=== PATIENT | female | born 1990 | race Caucasian/White ===

== ENCOUNTER → 2016-07-20 | Outpatient (CLI) | payer BC | LOC: MW.CHFP 10:22 → MERGE 10:22 | PROVIDERS: ATTEND Emergency Medicine | DX: R50.9 Fever, unspecified (principal) | CPT/HCPCS: 36415; 85025; 87804 ==

== ENCOUNTER 2017-09-08 00:07 | Inpatient (IN) | payer BC ==
[2017-09-08] MEDS ORDERED: Tranexamic Acid 1,000 MG in Sodium Chloride 0.9% 100 ML IV PRN (00:12)
[2017-09-08] MEDS ORDERED: Carboprost Tromethamine 250 MCG/1 ML Amp IM PRN (00:12)
[2017-09-08] MEDS ORDERED: Sodium Chloride 0.9% 10 ML Syringe FLUSH PRN (00:12)
[2017-09-08] MEDS ORDERED: Terbutaline 1 MG/ML SDV SUBCUT PRN (00:12)
[2017-09-08] MEDS ORDERED: Misoprostol 200 MCG Tab PO PRN (00:12)
[2017-09-08] MEDS ORDERED: Sodium Chloride 0.9% 2.5 ML Syringe FLUSH PRN (00:12)
[2017-09-08] MEDS ORDERED: Water For Irrigation,Sterile 1,000 ML Container IRR PRN (00:12)
[2017-09-08] MEDS ORDERED: Lidocaine 1% 50 ML MDV INJECT PRN (00:12)
[2017-09-08] MEDS ORDERED: Nalbuphine 10 MG/1 ML Vial IVPUSH PRN (00:12)
[2017-09-08] MEDS ORDERED: Methylergonovine 0.2 MG/1 ML Amp IM PRN (00:12)
[2017-09-08] MEDS ORDERED: Oxytocin/0.9 % Sodium Chloride 30 UNIT/500 ML BAG IV SCH ×2 (00:15)
[2017-09-08] MEDS ORDERED: Ampicillin 2 GM in Sodium Chloride 0.9% 100 ML IV ONE (00:45)
[2017-09-08] MEDS: Lactated Ringers 1,000 ML IV SCH ×4 (00:50→20:18)
[2017-09-08] MEDS: Ampicillin 1 GM in Sodium Chloride 0.9% 50 ML IV SCH ×5 (05:02→21:00)
--- NOTE | 2017-09-08 09:53 | PCM.LDHP ---
L&D History of Present Illness - General Date of Service: 09/08/17 Admit Problem/Dx: Patient Status Order with Admit Dx/Problem 09/08/17 00:13 Patient Status [ADT] Routine Admission Diagnosis/Problem Admission Diagnosis/Problem Source of Information: Patient History Limitations: Reports: No Limitations - History of Present Illness Improves with: Reports: None Worsens with: Reports: None Associated Symptoms: Reports: N - Related Data Allergies/Adverse Reactions: Allergies Allergy/AdvReac Type Severity Reaction Status Date / Time Latex, Natural Rubber Allergy Rash Verified 07/23/14 17:41 Home Medications: Home Meds [id number]/Iron Fumarate/FA/DSS [ 19 Tablet] 1 each PO 09/08/17 [History] Past Medical History - Past Health History Medical/Surgical History: Denies Medical/Surgical History Social & Family History - Tobacco Use Smoking Status *Q: Former Smoker Years of Tobacco use: 7 Used Tobacco, but Quit: No Month/Year Tobacco Last Used: 06/2013 Tobacco Use Comment: Has been 12 months since she last smoked Second Hand Smoke Exposure: No - Caffeine Use Caffeine Use: Reports: Coffee, Soda, Tea - Alcohol Use Days Per Week of Alcohol Use: 0 - Recreational Drug Use Recreational Drug Use: No H&P Review of Systems - Review of Systems: Review Of Systems: See Below General: Reports: No Symptoms HEENT: Reports: No Symptoms Pulmonary: Reports: No Symptoms Cardiovascular: Reports: No Symptoms Gastrointestinal: Reports: No Symptoms Genitourinary: Reports: No Symptoms Musculoskeletal: Reports: No Symptoms Skin: Reports: No Symptoms Psychiatric: Reports: No Symptoms Neurological: Reports: No Symptoms Hematologic/Lymphatic: Reports: No Symptoms Immunologic: Reports: No Symptoms L&D Exam - Exam Exam: See Below - Vital Signs Weight: 80.286 kg - OB Specific Fundal Height In cm: 36 Contraction Intensity: Mild to Moderate Movement: Active Heart Tones: Present Presentation: Vertex - Wilkins Score Wilkins Score Cervix Position: Midposition Wilkins Score Consistency: Medium Wilkins Score Effacement: 31-50% Wilkins Score Dilation: 1-2 cm Wilkins Score 's Station: -3 Wilkins Score Total: 4 - Exam General: Alert, Oriented HEENT: PERRLA, Conjunctiva Clear, EACs Clear, EOMI, Hearing Intact, Mucosa Moist & [place], Nares Patent, Normal Nasal Septum, Posterior Pharynx Clear, TMs Clear Neck: Supple, Trachea Midline Lungs: Clear to Auscultation, Normal Respiratory Effort Cardiovascular: Regular Rate, Regular Rhythm GI/Abdominal Exam: Normal Bowel Sounds, Soft, Non-Tender, No Organomegaly, No Distention, No Abnormal Bruit, No Mass, Pelvis Stable Rectal Exam: Normal Exam, Normal Rectal Tone Genitourinary: Normal external exam, Normal bimanual exam, Normal speculum exam Back Exam: Normal Inspection, Full Range of Motion Extremities: Normal Inspection, Normal Range of Motion, Non-Tender, No Pedal Edema, Normal Capillary Refill Skin: Warm, Dry, Intact Neurological: Cranial Nerves Intact, Reflexes Equal Bilateral Psychiatric: Alert, Normal Affect, Normal Mood - Patient Data Lab Results Last 24 hrs: Laboratory Results - last 24 hr 09/08/17 09/08/17 Range/Units 00:42 00:42 WBC 9.43 (4.0-11.0) K/uL RBC 3.86 L (4.30-5.90) M/uL Hgb 10.8 L (12.0-16.0) g/dL Hct 32.6 L (36.0-46.0) % MCV 84.5 (80.0-98.0) fL MCH 28.0 (27.0-32.0) pg MCHC 33.1 (31.0-37.0) g/dL RDW Std Deviation 38.8 (28.0-62.0) fl RDW Coeff of Neela 13 (11.0-15.0) % Plt Count 180 (150-400) K/uL MPV 10.60 (7.40-12.00) fL Blood Type A POSITIVE Antibody Screen NEGATIVE Result Diagrams: 09/08/17 00:42 Problem List Initiated/Reviewed/Updated: Yes Orders Last 24hrs: Active Orders 24 hr Category Date Time Status Patient Status [ADT] Routine ADT 09/08/17 00:13 Active Communication Order [RC] ASDIRECTED Care 09/08/17 00:13 Active May Shower [RC] ASDIRECTED Care 09/08/17 00:13 Active Notify Provider [RC] PRN Care 09/08/17 00:13 Active Oxygen Therapy [RC] ASDIRECTED Care 09/08/17 00:13 Active Up ad Cass [RC] ASDIRECTED Care 09/08/17 00:13 Active Vital Signs [RC] PER UNIT ROUTINE Care 09/08/17 00:13 Active Clear Liquid Diet [DIET] Diet 09/08/17 Breakfast Active Ampicillin 1 gm Med 09/08/17 05:00 Active Sodium Chloride 0.9% [Normal Saline] 50 ml IV Q4H Carboprost Tromethamine [Hemabate DS] Med 09/08/17 00:12 Active 250 mcg IM ASDIRECTED PRN Lactated Ringers [Ringers, Lactated] 1,000 ml Med 09/08/17 00:15 Active IV ASDIRECTED Lidocaine 1% [Xylocaine 1%] Med 09/08/17 00:12 Active 50 ml INJECT .ONCE PRN Methylergonovine [Methergine] Med 09/08/17 00:12 Active 0.2 mg IM ASDIRECTED PRN Misoprostol [Cytotec] Med 09/08/17 00:12 Active 200 mcg PO .ONCE PRN Nalbuphine [Nubain] Med 09/08/17 00:12 Active 10 mg IVPUSH Q1H PRN Oxytocin/0.9 % Sodium Chloride [Oxytocin 30 Unit/500 ML Med 09/08/17 00:15 Active -NS] 30 unit in 500 ml IV TITRATE Oxytocin/0.9 % Sodium Chloride [Oxytocin 30 Unit/500 ML Med 09/08/17 00:15 Active -NS] 30 unit in 500 ml IV TITRATE Sodium Chloride 0.9% [Saline Flush] Med 09/08/17 00:12 Active 10 ml FLUSH ASDIRECTED PRN Sodium Chloride 0.9% [Saline Flush] Med 09/08/17 00:12 Active 2.5 ml FLUSH ASDIRECTED PRN Terbutaline [Brethine] Med 09/08/17 00:12 Active 0.25 mg SUBCUT ASDIRECTED PRN Tranexamic Acid [Cyklokapron] 1,000 mg Med 09/08/17 00:12 Active Sodium Chloride 0.9% [Normal Saline] 100 ml IV ONETIME Water For Irrigation,Sterile [Sterile Water for Med 09/08/17 00:12 Active Irrigation] 1,000 ml IRR ASDIRECTED PRN Scalp Electrode [WOMSER] Per Unit Routine Oth 09/08/17 00:13 Ordered Medication Administration Instruction [OM.PC] Q3H Oth 09/08/17 00:15 Ordered Peripheral IV Insertion Adult [OM.PC] Routine Oth 09/08/17 00:13 Ordered Resuscitation Status Routine Resus Stat 09/08/17 00:12 Ordered Medication Orders Carboprost Tromethamine (Hemabate Ds) 250 mcg IM ASDIRECTED PRN PRN Reason: Post Hemorrhage Ampicillin Sodium 1 gm/ Sodium (Chloride) 50 mls @ 100 mls/hr IV Q4H EBER Last Admin: 09/08/17 05:02 Dose: 100 mls/hr Lactated Ringer's (Ringers, Lactated) 1,000 mls @ 150 mls/hr IV ASDIRECTED EBER Last Admin: 09/08/17 09:00 Dose: 150 mls/hr Infusion: 09/08/17 07:31 Dose: 150 mls/hr Admin: 09/08/17 00:50 Dose: 150 mls/hr Oxytocin/Sodium Chloride (Oxytocin 30 Unit/500 Ml-Ns) 30 unit in 500 mls @ 999 mls/hr IV TITRATE EBER Oxytocin/Sodium Chloride (Oxytocin 30 Unit/500 Ml-Ns) 30 unit in 500 mls @ 2 mls/hr IV TITRATE EBER; Protocol Last Titration: 09/08/17 07:40 Dose: 16 munits/min, 16 mls/hr Titration: 09/08/17 05:55 Dose: 14 munits/min, 14 mls/hr Titration: 09/08/17 05:05 Dose: 12 munits/min, 12 mls/hr Titration: 09/08/17 04:05 Dose: 10 munits/min, 10 mls/hr Titration: 09/08/17 03:14 Dose: 8 munits/min, 8 mls/hr Titration: 09/08/17 02:35 Dose: 6 munits/min, 6 mls/hr Titration: 09/08/17 02:02 Dose: 4 munits/min, 4 mls/hr Admin: 09/08/17 01:28 Dose: 2 munits/min, 2 mls/hr Tranexamic Acid 1,000 mg/ (Sodium Chloride) 110 mls @ 660 mls/hr IV ONETIME PRN PRN Reason: Bleeding Lidocaine HCl (Xylocaine 1%) 50 ml INJECT .ONCE PRN PRN Reason: Laceration repair Methylergonovine Maleate (Methergine) 0.2 mg IM ASDIRECTED PRN PRN Reason: Post Hemorrhage Misoprostol (Cytotec) 200 mcg PO .ONCE PRN PRN Reason: Post Hemorrhage Nalbuphine HCl (Nubain) 10 mg IVPUSH Q1H PRN PRN Reason: Pain (severe 7-10) Sodium Chloride (Saline Flush) 10 ml FLUSH ASDIRECTED PRN PRN Reason: Keep Vein Open Sodium Chloride (Saline Flush) 2.5 ml FLUSH ASDIRECTED PRN PRN Reason: Keep Vein Open Sterile Water (Sterile Water For Irrigation) 1,000 ml IRR ASDIRECTED PRN PRN Reason: delivery Terbutaline Sulfate (Brethine) 0.25 mg SUBCUT ASDIRECTED PRN PRN Reason: Tacysystole Assessment/Plan Comment:: Pt admited for elective induction.
[2017-09-08] MEDS ORDERED: Bupivacaine 0.25% 10 ML SDV ONE ×2 (19:00→20:54)
[2017-09-08] MEDS ORDERED: fentaNYL 100 MCG/2 ML SDV ONE (19:00)
--- NOTE | 2017-09-08 19:09 | PCM.PREANE ---
Preanesthetic Assessment - Anesthesia/Transfusion/Family Hx Anesthesia History: No Prior Anesthesia Type of Anesthesia Reaction: Other (see below) Family History of Anesthesia Reaction: No - Review of Systems General: No Symptoms Pulmonary: No Symptoms Cardiovascular: No Symptoms Gastrointestinal: No Symptoms Neurological: No Symptoms Other: Reports: None - Physical Assessment NPO Status Date: 09/08/17 NPO Status Time: 17:00 Pulse: 70 O2 Sat by Pulse Oximetry: 100 Respiratory Rate: 20 Blood Pressure: 127/61 Height: 1.57 m Weight: 80.286 kg ASA Class: 2 Airway Class: Mallampati = 1 Dentition: Reports: Normal Dentition ROM/Head Extension: Full Lungs: Clear to Auscultation - Lab Values: Laboratory Last Values WBC 9.43 K/uL (4.0-11.0) 09/08/17 00:42 RBC 3.86 M/uL (4.30-5.90) L 09/08/17 00:42 Hgb 10.8 g/dL (12.0-16.0) L 09/08/17 00:42 Hct 32.6 % (36.0-46.0) L 09/08/17 00:42 MCV 84.5 fL (80.0-98.0) 09/08/17 00:42 MCH 28.0 pg (27.0-32.0) 09/08/17 00:42 MCHC 33.1 g/dL (31.0-37.0) 09/08/17 00:42 RDW Std Deviation 38.8 fl (28.0-62.0) 09/08/17 00:42 RDW Coeff of Neela 13 % (11.0-15.0) 09/08/17 00:42 Plt Count 180 K/uL (150-400) 09/08/17 00:42 MPV 10.60 fL (7.40-12.00) 09/08/17 00:42 Blood Type A POSITIVE 09/08/17 00:42 Antibody Screen NEGATIVE 09/08/17 00:42 - Allergies Allergies/Adverse Reactions: Allergies Allergy/AdvReac Type Severity Reaction Status Date / Time Latex, Natural Rubber Allergy Rash Verified 07/23/14 17:41 - Anesthesia Plan Pre-Op Medication Ordered: None - Acknowledgements Anesthesia Type Planned: Epidural Pt an Appropriate Candidate for the Planned Anesthesia: Yes Alternatives and Risks of Anesthesia Discussed w Pt/Guardian: Yes Pt/Guardian Understands and Agrees with Anesthesia Plan: Yes Additional Comments: Chart reviewed, discussed, ? answered, permit signed, understands risks and benefits. Accepts and wishes to procede. PreAnesthesia Questionnaire - Past Health History Medical/Surgical History: Denies Medical/Surgical History - SUBSTANCE USE Smoking Status *Q: Former Smoker Tobacco Use Within Last Twelve Months: No Second Hand Smoke Exposure: No Days Per Week of Alcohol Use: 0 Recreational Drug Use History: No - HOME MEDS Home Medications: Home Meds [id number]/Iron Fumarate/FA/DSS [ 19 Tablet] 1 each PO 09/08/17 [History] - CURRENT (IN HOUSE) MEDS Current Meds: Current Medications Carboprost Tromethamine (Hemabate Ds) 250 mcg IM ASDIRECTED PRN PRN Reason: Post Hemorrhage Ampicillin Sodium 1 gm/ Sodium (Chloride) 50 mls @ 100 mls/hr IV Q4H EBER Last Admin: 09/08/17 17:19 Dose: 100 mls/hr Lactated Ringer's (Ringers, Lactated) 1,000 mls @ 150 mls/hr IV ASDIRECTED EBER Last Admin: 09/08/17 09:00 Dose: 150 mls/hr Oxytocin/Sodium Chloride (Oxytocin 30 Unit/500 Ml-Ns) 30 unit in 500 mls @ 999 mls/hr IV TITRATE EBER Oxytocin/Sodium Chloride (Oxytocin 30 Unit/500 Ml-Ns) 30 unit in 500 mls @ 2 mls/hr IV TITRATE EBER; Protocol Last Titration: 09/08/17 17:00 Dose: 20 munits/min, 20 mls/hr Tranexamic Acid 1,000 mg/ (Sodium Chloride) 110 mls @ 660 mls/hr IV ONETIME PRN PRN Reason: Bleeding Lidocaine HCl (Xylocaine 1%) 50 ml INJECT .ONCE PRN PRN Reason: Laceration repair Methylergonovine Maleate (Methergine) 0.2 mg IM ASDIRECTED PRN PRN Reason: Post Hemorrhage Misoprostol (Cytotec) 200 mcg PO .ONCE PRN PRN Reason: Post Hemorrhage Nalbuphine HCl (Nubain) 10 mg IVPUSH Q1H PRN PRN Reason: Pain (severe 7-10) Sodium Chloride (Saline Flush) 10 ml FLUSH ASDIRECTED PRN PRN Reason: Keep Vein Open Sodium Chloride (Saline Flush) 2.5 ml FLUSH ASDIRECTED PRN PRN Reason: Keep Vein Open Sterile Water (Sterile Water For Irrigation) 1,000 ml IRR ASDIRECTED PRN PRN Reason: delivery Terbutaline Sulfate (Brethine) 0.25 mg SUBCUT ASDIRECTED PRN PRN Reason: Tacysystole Discontinued Medications Ampicillin Sodium 2 gm/ Sodium (Chloride) 100 mls @ 200 mls/hr IV ONETIME ONE Stop: 09/08/17 01:14 Last Admin: 09/08/17 01:01 Dose: 200 mls/hr
--- NOTE | 2017-09-08 20:24 | PCM.SN ---
- Free Text/Narrative Note: Requeted for CSE for labor on being induced with pitocin. Dilation ~2cm. Complaining of significant discomfort. Procedure: Prep X3 with betadine @ 191 RAH Local: 5ml 1% lidocaine Space: L3-4 Needle: 17g Touhy @ 1914 RAH with 1ml NaCl/1ml air @ 1915 Catheter to 9cm @ 1919, occlusive drsg applied Bolus Bupivicaine 0.25% 6ml + Fentanyl 100 mcg over 3 min @ 1922 Pain less @ 1932. VSS Tolerated well. No problems noted post. Pain less epidural slightly one-sided, will turn side down. 20:20
[2017-09-08] MEDS ORDERED: oxyCODONE 5 MG Tab PO PRN (21:53)
[2017-09-08] MEDS ORDERED: Benzocaine/Menthol 20%-0.5% Spray 78 GM Cannister TOP PRN (21:53)
[2017-09-08] MEDS ORDERED: Lanolin 100% Cream 7 GM Tube TOP PRN (21:53)
[2017-09-08] MEDS ORDERED: Ibuprofen 400 MG Tab PO PRN (21:53)
[2017-09-08] MEDS ORDERED: Docusate Sodium 100 MG Cap PO PRN (21:53)
[2017-09-08] MEDS ORDERED: Witch Hazel Medicated Pads 40/Jar TOP PRN (21:53)
[2017-09-08] MEDS ORDERED: Bisacodyl 10 MG Supp RECTAL PRN (21:53)
[2017-09-08] MEDS ORDERED: Acetaminophen 500 MG Tab PO PRN ×2 (21:53)
--- NOTE | 2017-09-08 23:59 | OR ---
SURGEON: Sundeep Neff MD DATE OF PROCEDURE: Ms. Packer is 27 years old. She is para 1-0-0-1. She was admitted for elective induction. At the time of admission, she was 1 to 2 cm, 50% vertex, and -3. She was started on low-dose Pitocin and she responded to it. At 3:00 p.m., I was able to do artificial rupture of membrane with clear fluid. At that time, she was dilated 2 to 3, 50% to 60% vertex, and -3, clear fluid. The patient had epidural anesthesia for labor analgesia. She required Pitocin augmentation to enhance her labor. After she reached 6 to 7 cm, she rather moved very quickly. She went from 6 to 7 to complete, +3, and started pushing and she had a precipitous labor attended by the nurse. When I arrived, fetus was already delivered and it was at the mother's abdomen and it was crying, and scores later on reported to be 8 and 9. I clamped the cord and transected it, and the placenta delivered spontaneous, complete, and intact without any problem. On examination of the perineum, there was no laceration, labial or perineal. Estimated blood loss is 250 to 300 mL. There were no complications in this or the delivery. heart rate was category 1 through the entire process of labor and delivery. EMERALD / LORNA /[id number]
[2017-09-09] MEDS: Ibuprofen 800 MG Tab PO PRN ×2 (01:01→07:47)
--- NOTE | 2017-09-09 09:59 | PCM.PNPP ---
- General Info Date of Service: 09/09/17 Functional Status: Reports: Pain Controlled - Review of Systems General: Reports: No Symptoms HEENT: Reports: No Symptoms Pulmonary: Reports: No Symptoms Cardiovascular: Reports: No Symptoms Gastrointestinal: Reports: No Symptoms Genitourinary: Reports: No Symptoms Musculoskeletal: Reports: No Symptoms Skin: Reports: No Symptoms Neurological: Reports: No Symptoms Psychiatric: Reports: No Symptoms - General Info Date of Service: 09/09/17 - Patient Data Vital Signs - Most Recent: Last Vital Signs Temp 36.6 C 09/09/17 07:29 Pulse 66 09/09/17 07:29 Resp 16 09/09/17 07:29 BP 91/61 09/09/17 07:29 Pulse Ox 98 09/09/17 07:29 Weight - Most Recent: 80.286 kg Lab Results - Last 24 Hours: Laboratory Results - last 24 hr 09/09/17 Range/Units 05:53 Hgb 10.1 L (12.0-16.0) g/dL Hct 31.0 L (36.0-46.0) % Med Orders - Current: Current Medications Acetaminophen (Tylenol Extra Strength) 500 mg PO Q4H PRN PRN Reason: Pain Acetaminophen (Tylenol Extra Strength) 1,000 mg PO Q4H PRN PRN Reason: Pain Last Admin: 09/09/17 06:44 Dose: 1,000 mg Benzocaine/Menthol (Dermoplast Pain Relief 20%-0.5% Parker) 78 gm TOP ASDIRECTED PRN PRN Reason: Perineal Comfort Measure Last Admin: 09/09/17 01:01 Dose: 1 spray Bisacodyl (Dulcolax) 10 mg RECTAL .ONCE PRN PRN Reason: Constipation Carboprost Tromethamine (Hemabate Ds) 250 mcg IM ASDIRECTED PRN PRN Reason: Post Hemorrhage Docusate Sodium (Colace) 100 mg PO BID PRN PRN Reason: Constipation Emollient Ointment (Lansinoh Hpa) 0 gm TOP ASDIRECTED PRN PRN Reason: Sore Nipples Ampicillin Sodium 1 gm/ Sodium (Chloride) 50 mls @ 100 mls/hr IV Q4H EBER Last Admin: 09/08/17 21:00 Dose: 100 mls/hr Lactated Ringer's (Ringers, Lactated) 1,000 mls @ 150 mls/hr IV ASDIRECTED EBER Last Admin: 09/08/17 20:18 Dose: 150 mls/hr Oxytocin/Sodium Chloride (Oxytocin 30 Unit/500 Ml-Ns) 30 unit in 500 mls @ 999 mls/hr IV TITRATE EBER Last Admin: 09/08/17 22:23 Dose: 999 mls/hr Oxytocin/Sodium Chloride (Oxytocin 30 Unit/500 Ml-Ns) 30 unit in 500 mls @ 2 mls/hr IV TITRATE EBER; Protocol Last Titration: 09/08/17 17:00 Dose: 20 munits/min, 20 mls/hr Tranexamic Acid 1,000 mg/ (Sodium Chloride) 110 mls @ 660 mls/hr IV ONETIME PRN PRN Reason: Bleeding Ibuprofen (Motrin) 400 mg PO Q4H PRN PRN Reason: Pain Ibuprofen (Motrin) 800 mg PO Q6H PRN PRN Reason: Pain Last Admin: 09/09/17 07:47 Dose: 800 mg Lidocaine HCl (Xylocaine 1%) 50 ml INJECT .ONCE PRN PRN Reason: Laceration repair Methylergonovine Maleate (Methergine) 0.2 mg IM ASDIRECTED PRN PRN Reason: Post Hemorrhage Misoprostol (Cytotec) 200 mcg PO .ONCE PRN PRN Reason: Post Hemorrhage Nalbuphine HCl (Nubain) 10 mg IVPUSH Q1H PRN PRN Reason: Pain (severe 7-10) Oxycodone HCl (Oxycodone) 5 mg PO Q2H PRN PRN Reason: Pain Sodium Chloride (Saline Flush) 10 ml FLUSH ASDIRECTED PRN PRN Reason: Keep Vein Open Sodium Chloride (Saline Flush) 2.5 ml FLUSH ASDIRECTED PRN PRN Reason: Keep Vein Open Sterile Water (Sterile Water For Irrigation) 1,000 ml IRR ASDIRECTED PRN PRN Reason: delivery Terbutaline Sulfate (Brethine) 0.25 mg SUBCUT ASDIRECTED PRN PRN Reason: Tacysystole Witch Bharti (Tucks) 1 pad TOP ASDIRECTED PRN PRN Reason: comfort care Discontinued Medications Bupivacaine HCl (Sensorcaine-Mpf 0.25%) Confirm Administered Dose 10 ml .ROUTE .[facility]-MED ONE Stop: 09/08/17 19:01 Bupivacaine HCl (Sensorcaine-Mpf 0.25%) Confirm Administered Dose 10 ml .ROUTE .STK-MED ONE Stop: 09/08/17 20:55 Fentanyl (Sublimaze) Confirm Administered Dose 100 mcg .ROUTE .STK-MED ONE Stop: 09/08/17 19:01 Ampicillin Sodium 2 gm/ Sodium (Chloride) 100 mls @ 200 mls/hr IV ONETIME ONE Stop: 09/08/17 01:14 Last Admin: 09/08/17 01:01 Dose: 200 mls/hr Fentanyl/Bupivacaine HCl ([place]-Knmro-Yk 2 Mcg/Ml-0.125%) Confirm Administered Dose 100 mls @ as directed EP .STK-MED ONE Stop: 09/08/17 19:01 - Infant Interaction Infant Disposition, : [place] in Room with Family Infant Interaction: Holding Feeding: Attempted ; Nursed Fair/Poor Support Person: - Recovery Exam Fundal Tone: Firm Fundal Level: At Umbilicus Fundal Placement: Midline Lochia Amount: Scant Lochia Color: Rubra/Red Perineum Description: Intact, Minimal Bruising/Swelling Episiotomy/Laceration: None Bladder Status: Voiding - Exam General: Alert, Oriented HEENT: Pupils Equal Neck: Supple Lungs: Clear to Auscultation, Normal Respiratory Effort Cardiovascular: Regular Rate, Regular Rhythm GI/Abdominal Exam: Normal Bowel Sounds, Soft, Non-Tender, No Organomegaly, No Distention, No Abnormal Bruit, No Mass, Pelvis Stable Extremities: Normal Inspection, Normal Range of Motion, Non-Tender, No Pedal Edema, Normal Capillary Refill Skin: Warm, Dry, Intact Wound/Incisions: Healing Well Neurological: No New Focal Deficit Psy/Mental Status: Alert, Normal Affect, Normal Mood - Problem List Review Problem List Initiated/Reviewed/Updated: Yes - My Orders Last 24 Hours: My Active Orders 09/08/17 21:53 Patient Status [ADT] Routine May Shower [RC] ASDIRECTED Up ad Cass [RC] ASDIRECTED Vital Signs [RC] PER UNIT ROUTINE Acetaminophen [Tylenol Extra Strength] 1,000 mg PO Q4H PRN Acetaminophen [Tylenol Extra Strength] 500 mg PO Q4H PRN Benzocaine/Menthol [Dermoplast Pain Relief 20%-0.5% Parker] 78 gm TOP ASDIRECTED PRN Bisacodyl [Dulcolax] 10 mg RECTAL .ONCE PRN Docusate Sodium [Colace] 100 mg PO BID PRN Ibuprofen [Motrin] 400 mg PO Q4H PRN Ibuprofen [Motrin] 800 mg PO Q6H PRN Lanolin [Lansinoh HPA] See Dose Instructions TOP ASDIRECTED PRN Witch Bharti [Tucks] 1 pad TOP ASDIRECTED PRN oxyCODONE 5 mg PO Q2H PRN Assess Lochia [WOMSER] Per Unit Routine Assess Uterine Involution [WOMSER] Per Unit Routine Peripheral IV Discontinue [OM.PC] Routine 09/09/17 Breakfast Regular Diet [DIET] - Assessment Assessment:: doing ok - Plan Plan:: Pt admited for elective induction.
--- NOTE | 2017-09-09 13:20 | PCM48HPAN ---
Post Anesthesia Note - EVALUATION WITHIN 48HRS OF ANESTHETIC Vital Signs in Normal Range: Yes Patient Participated in Evaluation: Yes Respiratory Function Stable: Yes Airway Patent: Yes Cardiovascular Function Stable: Yes Hydration Status Stable: Yes Pain Control Satisfactory: Yes Nausea and Vomiting Control Satisfactory: Yes Mental Status Recovered: Yes Pulse Rate: 70 Resp Rate: 16 Blood Pressure: 127/61 - COMMENTS/OBSERVATIONS Free Text/Narrative:: Doing well post . No problems noted.
[2017-09-09 20:11] VITALS: BP 107/67
== END 2017-09-09 23:50 | disposition home or self-care (01) | DRG 560 ==
LOC: MW.OBCHECK 00:07 → MW.OB 00:10 → MW.OBCHECK 00:13 → OBSVTOIN 21:44 → MW.OB 09-09 01:41
PROVIDERS: ADMIT Obstetrics & Gynecology; ATTEND Obstetrics & Gynecology
PROC: 10E0XZZ Delivery of Products of Conception, External Approach (ICD-10-PCS; principal; 2017-09-08)
PROC: 3E033VJ Introduction of Other Hormone into Peripheral Vein, Percutaneous Approach (ICD-10-PCS; 2017-09-08)
PROC: 10907ZC Drainage of Amniotic Fluid, Therapeutic from Products of Conception, Via Natural or Artificial Opening (ICD-10-PCS; 2017-09-08)
DX: O62.3 Precipitate labor (principal); Z3A.39 39 weeks gestation of pregnancy; Z37.0 Single live birth
CPT/HCPCS: 36415; 51701; 59025; 59409; 85014; 85018; 85027; 86850; 86900; 86901; A9270-GY; J0290; J2590; J7030; J7050; J7120